=== PATIENT | female | born 1990 | race Two or more races ===

== ENCOUNTER 2025-02-28 15:48 | Emergency (ER) | payer MEDICARE, OTHER ==
[~2025-02-28] VITALS: Ht 152.4 cm; Wt 63.5 kg
[2025-02-28 16:52] LABS: *BILIRUBIN,URIN NEGATIVE (NEGATIVE); *CLARITY,URINE CLEAR (CLEAR); *COLOR,URINE YELLOW (YELLOW); *KETONES,URINE NEGATIVE (NEGATIVE); *PROTEIN,URINE NEGATIVE (NEGATIVE); *UROBILINOGEN,URINE 0.2 E.U./dl (NORMAL); LEUKOCYTE ESTERASE ,URINE NEGATIVE (NEGATIVE); NITRITE, URINE NEGATIVE (NEGATIVE); UGLUCOSE NEGATIVE (NEGATIVE)
[2025-02-28 16:58] LABS: *BLOOD, URINE NEGATIVE (NEGATIVE)
[2025-02-28 17:00] LABS: *URINE HCG, QUAL NEGATIVE (NEGATIVE)
[2025-02-28 17:33] LABS: PLATELET COUNT (AUTO) 441 K/uL (179-408); RED BLOOD CELL COUNT(AUTO) 4.70 MIL/uL (3.63-4.92); RED CELL DISTRIBUTION WIDTH 17.0 % (12.3-17.7); WHITE BLOOD COUNT (AUTO) 6.9 K/uL (3.8-11.8)
[2025-02-28 17:45] LABS: IRON, SERUM 39 ug/dL (50-175)
[2025-02-28] MEDS ORDERED: FERR325T23 PO (18:23)
[2025-02-28 18:40] VITALS: BP 133/88; TEMP 97.8; O2SAT 100
== END 2025-02-28 18:40 | disposition home or self-care (01) ==
LOC: ER 16:38
DX: N94.0 Mittelschmerz (principal); N83.201 Unspecified ovarian cyst, right side; D50.9 Iron deficiency anemia, unspecified; R10.2 Pelvic and perineal pain
CPT/HCPCS: 36415; 76856; 83550; 84703; 85025; A4606; A4663